=== PATIENT | female | born 1990 | race Caucasian/White ===

== ENCOUNTER 2016-08-17 07:29 | Day surgery (SDC) | payer OTHER ==
[~2016-08-17 07:29] MED LIST: IV START KIT ONE; LACTATED RINGERS 1,000 ML IV SCH; LACTATED RINGERS 1,000 ML ONE; LIDOCAINE 1% 2 ML VIAL ID PRN
[2016-08-17] MEDS ORDERED: FENTANYL 100 MCG/2 ML VIAL ONE (09:34)
[2016-08-17] MEDS ORDERED: PROPOFOL 20 ML IV ONE (10:00)
[2016-08-17] MEDS ORDERED: METOCLOPRAMIDE HCL 5 MG/ML 2ML VIAL ONE (10:00)
[2016-08-17] MEDS ORDERED: KETOROLAC TROMETHAMINE 30 MG/ML 1 ML VIAL ONE (10:00)
[2016-08-17] MEDS ORDERED: ONDANSETRON 4 MG/2ML 2 ML VIAL ONE (10:00)
[2016-08-17] MEDS ORDERED: NALOXONE HCL 0.4 MG/ML VIAL IV PRN (10:09)
[2016-08-17] MEDS ORDERED: MORPHINE SULFATE 4 MG/ML SYRINGE IV PRN (10:09)
[2016-08-17] MEDS ORDERED: MEPERIDINE 25 MG/ML SYRINGE IV PRN (10:09)
[2016-08-17] MEDS ORDERED: PROMETHAZINE HCL 25 MG/ML VIAL IM PRN (10:09)
[2016-08-17] MEDS ORDERED: ONDANSETRON 4 MG/2ML 2 ML VIAL IV PRN ×2 (10:09→11:36)
[2016-08-17] MEDS ORDERED: HYDRALAZINE HCL 20 MG/1 ML VIAL IV PRN (10:09)
[2016-08-17] MEDS ORDERED: ATROPINE SULFATE 0.4 MG/1 ML VIAL IV PRN (10:09)
[2016-08-17] MEDS ORDERED: LACTATED RINGERS 1,000 ML IV SCH ×2 (10:15→11:36)
--- NOTE | 2016-08-17 11:09 | OP ---
Marisabel Thakkar Weathers DATE: 08/17/2016 SURGEON: Oliver Domínguez M.D. PREOPERATIVE DIAGNOSIS: Retained products of conception. POSTOPERATIVE DIAGNOSIS: Retained products of conception. OPERATION: Dilation, hysteroscopy, and resection of intrauterine tissue. TECHNICAL PROCEDURE: After induction of satisfactory general anesthesia the patient was placed in the supine lithotomy position, prepped and draped in the usual fashion. A weighted speculum was placed in the vagina and the anterior lip of the cervix grasped with a single tooth tenaculum. The cervix was dilated using progressive larger Singleton dilators to a 27-Divehi. The hysteroscope was introduced and a large mass of tissue was noted in the posteriori fundal region of the uterus, this was resected using a resectoscope. Hemostasis was obtained in part with electrocautery. When all of the tissue appeared to have been resected the procedure was terminated. The patient tolerated the procedure well and left the operating room awake and in good condition. There were no complications. Instrument, needle, and sponge counts were correct. Estimated blood loss was 100 mL. There was no blood replacement. Specimens removed were endometrial curettings. JOB: [id number]
[2016-08-17] MEDS ORDERED: HYDROMORPHONE HCL 1 MG/ML SYRINGE IV PRN (11:36)
[2016-08-17] MEDS ORDERED: OXYCODONE HCL 5 MG TABLET PO PRN (11:36)
[2016-08-17] MEDS ORDERED: KETOROLAC TROMETHAMINE 30 MG/ML 1 ML VIAL IV PRN (16:30)
== END 2016-08-17 13:00 | disposition home or self-care (01) ==
LOC: SDC 07:29
PROVIDERS: ATTEND Obstetrics & Gynecology
PROC: 0UDB8ZX Extraction of Endometrium, Via Natural or Artificial Opening Endoscopic, Diagnostic (ICD-10-PCS; principal; 2016-08-17)
DX: O02.1 Missed abortion (principal); O03.0 Genital tract and pelvic infection following incomplete spontaneous abortion; Z3A.01 Less than 8 weeks gestation of pregnancy
CPT/HCPCS: 58558; J3010; J2765; J1885; J2405; J7120